=== PATIENT | female | born 1980 | race Caucasian/White ===

== ENCOUNTER 2016-12-24 20:20 | Emergency (ER) | payer SELFPAY ==
[~2016-12-24] VITALS: Ht 165.1 cm; Wt 60.9 kg
[~2016-12-24 20:20] MED LIST: ASCO10003 PO
[2016-12-24 20:23] VITALS: TEMP 36.9; Ht 165.1 cm; Wt 60.9 kg
[2016-12-24] MEDS ORDERED: NUTRTAB40 PO (20:54)
--- NOTE | 2016-12-24 21:31 | EMERGENCY ROOM VISIT NOTE ---
History Report prepared by Natty: Rola Rogers Under the Supervision of: Dr. Jaqueline Hernández D.O. First contact with patient: 21:06 Chief Complaint: RECTAL BLEEDING Stated Complaint: NAUSEA, BLURRED VISION, RECTAL BLEEDING Nursing Triage Summary: Patient reports lump in throat when swallowing, migraine when going to bathroom , bleeding when going to bathroom. Patient reports no difficulty swallowing or breathing and a history of hemerrhoids History of Present Illness The patient is a 36 year old female who presents to the Emergency Room with complaints of waxing and waning headaches beginning 3 weeks ago. The patient states that she only gets these headaches when she is urinating or defecating. She reports that she would get dizzy at work, and states that she has been having visional changes in which she can only see several feet in front of her. The patient states that she has had abdominal pain and that she feels as if there is a lump in her throat when she swallows. The patient reports having numb spots on the right side of her face. The patient also reports that her abdomen has been swollen lately and that she has had rectal bleeding. She states that she had rectal bleeding for 5 years on and off and that she has had an anal fissure. She states that she has had 2 colonoscopies done and was told she has polyps. The patient denies a history of migraines, but reports breaking her nose 5 years ago. She also reports having thyroid problems and a history of a hysterectomy. Source of History: patient Onset: 3 weeks ago Position: head Quality: other (headache) Timing: waxes/wanes Associated Symptoms: + abdominal pain (swollen), + weakness (dizziness) Note: additional symptoms: rectal bleeding, numb spots on the right side of face Review of Systems See HPI for pertinent positives & negatives. A total of 10 systems reviewed and were otherwise negative. Past Medical & Surgical Medical Problems: (1) Anxiety (2) Endometriosis (3) Hypothyroidism (4) Stomach ulcer Surgical Problems: (1) H/O: hysterectomy Family History Cancer Diabetes mellitus Kidney stones Social History Smoking Status: Current Every Day Smoker Marital Status: single Housing Status: lives with family Occupation Status: unemployed Current/Historical Medications Scheduled Nutritional Supplements (Estroven), 1 TAB PO DAILY Allergies Coded Allergies: No Known Allergies (Unverified , 12/24/16) Physical Exam Vital Signs Date Time Temp Pulse Resp B/P (MAP) Pulse Ox O2 Delivery O2 Flow Rate FiO2 12/25/16 00:53 70 16 124/75 98 12/24/16 23:14 80 16 124/71 97 Room Air 12/24/16 21:49 76 16 132/71 97 Room Air 12/24/16 20:23 36.9 91 18 137/79 96 Room Air Physical Exam GENERAL: alert, well appearing, well nourished, no distress, non-toxic EYE EXAM: normal conjunctiva, PERRL and EOM's grossly intact OROPHARYNX: no exudate, no erythema, lips, buccal mucosa, and tongue normal and mucous membranes are moist NECK: supple, no nuchal rigidity, no adenopathy, non-tender LUNGS: Clear to auscultation. Normal chest wall mechanics HEART: no murmurs, S1 normal and S2 normal ABDOMEN: abdomen soft, non-tender, normo-active bowel sounds, no masses, no rebound or guarding. BACK: Back is symmetrical on inspection and there is no deformity, no midline tenderness, no CVA tenderness. SKIN: no rashes and no bruising UPPER EXTREMITIES: upper extremities are grossly normal. LOWER EXTREMITIES: No pitting edema. NEURO EXAM: Normal sensorium, cranial nerves II-XII grossly intact, normal speech, no gross weakness of arms, no gross weakness of legs. No drift. Finger to nose intact. Gross sensation intact. Medical Decision & Procedures ER Provider Diagnostic Interpretation: Radiology results have been interpreted by the radiologist and reviewed by me. KUB HISTORY: Abdominal distention. COMPARISON: Abdomen and pelvis CT 01/26/2014. FINDINGS: The bowel gas pattern is unremarkable. There are no dilated loops of small bowel to suggest an obstruction. No renal calculi. No ureteral calculi. Calcifications in the deep pelvis likely represent phleboliths. These remain unchanged. Moderate amount well-formed stool seen within the colon. No pneumoperitoneum or pneumatosis. IMPRESSION: No evidence for bowel obstruction. Moderate amount of well-formed stool seen within the colon. Electronically signed by: Cornelio Ellington M.D. 12/24/2016 10:45 PM Dictated Date/Time: 12/24/2016 10:35 PM Radiology results have been interpreted by [facility]. MRI HEAD: Compared to CT of 01/26/14. No diffusion abnormality to indicate acute or subacute infarct. No intracranial hemorrhage or mass. Laboratory Results 12/24/16 21:00 Red Blood Count 5.15, Mean Corpuscular Volume 84.3, Mean Corpuscular Hemoglobin 29.7, Mean Corpuscular Hemoglobin Concent 35.3, Mean Platelet Volume 10.1, Neutrophils (%) (Auto) 38.9, Lymphocytes (%) (Auto) 52.6, Monocytes (%) (Auto) 6.6, Eosinophils (%) (Auto) 1.5, Basophils (%) (Auto) 0.2, Neutrophils # (Auto) 3.86, Lymphocytes # (Auto) 5.22, Monocytes # (Auto) 0.65, Eosinophils # (Auto) 0.15, Basophils # (Auto) 0.02 12/24/16 21:00 Test 12/24/16 21:00 12/24/16 22:20 White Blood Count 9.92 K/uL (4.8-10.8) Red Blood Count 5.15 M/uL (4.2-5.4) Hemoglobin 15.3 g/dL (12.0-16.0) Hematocrit 43.4 % (37-47) Mean Corpuscular Volume 84.3 fL (80-100) Mean Corpuscular Hemoglobin 29.7 pg (25-34) Mean Corpuscular Hemoglobin Concent 35.3 g/dl (32-36) Platelet Count 274 K/uL (130-400) Mean Platelet Volume 10.1 fL (7.4-10.4) Neutrophils (%) (Auto) 38.9 % Lymphocytes (%) (Auto) 52.6 % Monocytes (%) (Auto) 6.6 % Eosinophils (%) (Auto) 1.5 % Basophils (%) (Auto) 0.2 % Neutrophils # (Auto) 3.86 K/uL (1.4-6.5) Lymphocytes # (Auto) 5.22 K/uL (1.2-3.4) Monocytes # (Auto) 0.65 K/uL (0.11-0.59) Eosinophils # (Auto) 0.15 K/uL (0-0.5) Basophils # (Auto) 0.02 K/uL (0-0.2) RDW Standard Deviation 37.6 fL (36.4-46.3) RDW Coefficient of Variation 12.3 % (11.5-14.5) Immature Granulocyte % (Auto) 0.2 % Immature Granulocyte # (Auto) 0.02 K/uL (0.00-0.02) Anion Gap 7.0 mmol/L (3-11) Est Creatinine Clear Calc Drug Dose 110.4 ml/min Estimated GFR () 134.0 Estimated GFR (Non- 115.6 BUN/Creatinine Ratio 19.8 (10-20) Calcium Level 9.3 mg/dl (8.5-10.1) Magnesium Level 2.1 mg/dl (1.8-2.4) Total Bilirubin 0.3 mg/dl (0.2-1) Aspartate Amino Transf (AST/SGOT) 11 U/L (15-37) Alanine Aminotransferase (ALT/SGPT) 13 U/L (12-78) Alkaline Phosphatase 66 U/L (45-117) Troponin I < 0.015 ng/ml (0-0.045) Total Protein 7.5 gm/dl (6.4-8.2) Albumin 4.1 gm/dl (3.4-5.0) Globulin 3.4 gm/dl (2.5-4.0) Albumin/Globulin Ratio 1.2 (0.9-2) Thyroid Stimulating Hormone (TSH) 4.920 uIu/ml (0.300-4.500) Urine Color DK YELLOW Urine Appearance CLEAR (CLEAR) Urine pH 7.0 (4.5-7.5) Urine Specific [place] 1.028 (1.000-1.030) Urine Protein NEG (NEG) Urine Glucose (UA) NEG (NEG) Urine Ketones TRACE (NEG) Urine Occult Blood NEG (NEG) Urine Nitrite NEG (NEG) Urine Bilirubin NEG (NEG) Urine Urobilinogen NEG (NEG) Urine Leukocyte Esterase NEG (NEG) Laboratory results per my review. Medications Administered Medications (Trade) Dose Ordered Sig/Nery Route Start Time Stop Time Status Last Admin Dose Admin Sodium Chloride 1,000 ml @ 999 mls/hr Q1H1M STAT IV 12/24/16 21:36 12/24/16 22:36 DC 12/24/16 21:36 999 MLS/HR ECG Indication: weakness Rate (beats per minute): 66 Rhythm: sinus rhythm Findings: T-wave inversion (in V2, flat in aVL and V3), no acute ischemic change, other (normal axis, normal intervals) ED Course 2114: The patient was evaluated in room C2B. A complete history and physical exam was performed. 2135: Ordered Sodium Chloride 1,000 ml @ 999 mls/hr IV. 2314: Ordered Gadavist 6 mmol IV. 5: I updated the patient on her results. 0000: I updated the patient. She has had no change in her condition. We are waiting on her MRI. 0: I updated the patient on her MRI results. 0040: Upon reevaluation, the patient is feeling better. I discussed the findings and the treatment plan with the patient. She verbalizes agreement and understanding. She was discharged home. Medical Decision Differential diagnosis: Etiologies such as benign positional vertigo, dehydration, hypovolemia, anemia, tumor, infection, hypoglycemia, electrolyte abnormalities, cardiac sources, intracerebral event, toxicologic, neurologic, as well as others were entertained. HEART score 1 PERC negative Pt with multiple complaints here. Normal nonfocal neuro exam at bedside. No dysrhythmia on tele. Pt well appearing here. Labs otw reassuring. Discussed close f/u with PCP and possible need for additional speciality evaluation if sx persist. Discussed sx to watch/return for, she verbalized understanding. Doubt acs, pe, tamponade, effusion, dissection, aaa, bacteremia/sepsis, perf, gi bleed. Doubt other acute GI/ pathology. Medication Reconcilliation Current Medication List: was personally reviewed by me Blood Pressure Screening Patient's blood pressure: Normal blood pressure Impression Primary Impression: Head ache Additional Impressions: Abdominal pain Dizziness Chest pain Scribe Attestation The scribe's documentation has been prepared under my direction and personally reviewed by me in its entirety. I confirm that the note above accurately reflects all work, treatment, procedures, and medical decision making performed by me. Departure Information Dispostion Home / Self-Care Referrals No Doctor, Assigned (PCP) Forms HOME CARE DOCUMENTATION FORM, IMPORTANT VISIT INFORMATION, WORK / SCHOOL INSTRUCTIONS Patient Instructions My [facility] Additional Instructions Please call and follow-up with your family doctor about all the symptoms you have been intermittently having. 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 If you have any worsening symptoms or other new concerns, please return to the emergency room. Problem Qualifiers Primary Impression: Head ache Headache type: unspecified Headache chronicity pattern: episodic headache Intractability: not intractable Qualified Codes: R51 - Headache Additional Impressions: Abdominal pain Abdominal location: generalized Qualified Codes: R10.84 - Generalized abdominal pain Chest pain Chest pain type: unspecified Qualified Codes: R07.9 - Chest pain, unspecified
[2016-12-24] MEDS ORDERED: SODIUM CHLORIDE 0.9% 1000ML 1,000 ML IV STA (21:36)
[2016-12-24 22:39] LABS: URINE APPEARANCE CLEAR (CLEAR); URINE BILIRUBIN NEG (NEG); URINE COLOR DK YELLOW; URINE NITRITE NEG (NEG); URINE SPECIFIC GRAVITY 1.028 (1.000-1.030); UROBILINOGEN NEG (NEG); ZZUR CULT IF INDIC CLEAN CATCH NO
--- NOTE | 2016-12-24 22:46 | DIAGNOSTIC IMAGING REPORT ---
KUB HISTORY: Abdominal distention. COMPARISON: Abdomen and pelvis CT 01/26/2014. FINDINGS: The bowel gas pattern is unremarkable. There are no dilated loops of small bowel to suggest an obstruction. No renal calculi. No ureteral calculi. Calcifications in the deep pelvis likely represent phleboliths. These remain unchanged. Moderate amount well-formed stool seen within the colon. No pneumoperitoneum or pneumatosis. IMPRESSION: No evidence for bowel obstruction. Moderate amount of well-formed stool seen within the colon. Electronically signed by: Cornelio Ellington M.D. 12/24/2016 10:45 PM Dictated Date/Time: 12/24/2016 10:35 PM
[2016-12-24 22:49] LABS: MANUAL MICROSCOPIC REQUIRED? NO; REVIEW REQ? NO
[2016-12-24 22:56] LABS: HEMATOCRIT 43.4 % (37-47); MEAN CELL VOLUME 84.3 fL (80-100); MEAN CORPUSCULAR HEMOGLOBIN 29.7 pg (25-34); MEAN CORPUSCULAR HGB CONC 35.3 g/dl (32-36); MEAN PLATELET VOLUME 10.1 fL (7.4-10.4); PLATELET COUNT 274 K/uL (130-400); RED BLOOD COUNT 5.15 M/uL (4.2-5.4); WHITE BLOOD COUNT 9.92 K/uL (4.8-10.8)
[2016-12-24 23:04] LABS: ALT/SGPT 13 U/L (12-78); BLOOD UREA NITROGEN 13 mg/dl (7-18); BUN/CREATININE RATIO 19.8 (10-20); CALCIUM 9.3 mg/dl (8.5-10.1); CARBON DIOXIDE 27 mmol/L (21-32); CHLORIDE 107 mmol/L (98-107); CREATININE 0.64 mg/dl (0.60-1.20); GLUCOSE 108 mg/dl (70-99); MAGNESIUM 2.1 mg/dl (1.8-2.4); POTASSIUM 3.4 mmol/L (3.5-5.1); SODIUM 141 mmol/L (136-145)
[2016-12-24 23:15] LABS: ALB/GLOB RATIO 1.2 (0.9-2); ALKALINE PHOSPHATASE 66 U/L (45-117); AST/SGOT 11 U/L (15-37); BASO % 0.2 %; BASO ABS # 0.02 K/uL (0-0.2); COMPLETE YES; EOS % 1.5 %; IG% 0.2 %; LYMPH % 52.6 %; LYMPH ABS # 5.22 K/uL (1.2-3.4); MONO % 6.6 %; NEUT % 38.9 %
[2016-12-24] MEDS ORDERED: GADAVIST IV PRN (23:15)
[2016-12-25 00:53] VITALS: BP 124/75; PULSE 70; O2SAT 98
--- NOTE | 2016-12-25 06:40 | DIAGNOSTIC IMAGING REPORT ---
MRI OF THE BRAIN WITHOUT AND WITH IV CONTRAST CLINICAL HISTORY: Blurred vision, dizziness, facial numbness and headache. COMPARISON STUDY: Head CT January 26, 2014. TECHNIQUE: Utilizing a 1.5 Emily magnet and dedicated coil, multiplanar, multiecho imaging of the brain was performed pre and postcontrast administration. IV administration of 6 mL of Gadavist contrast was uneventful. FINDINGS: There are no areas of restricted diffusion. No acute intracranial hemorrhage, midline shift or mass effect is present. Ventricular system is normal. Basilar cisterns are patent. There are no extra-axial collections. Flow-voids for the major intracranial vessels are present. There is no intracranial mass or pathologic enhancement. Flow-voids in the major intracranial vessels are present. Calvarial signal is normal. Orbits are unremarkable. Sinuses are clear. There is prominence of the adenoids. IMPRESSION: Unremarkable MRI of the brain. Electronically signed by: Tristin Vidales M.D. 12/25/2016 6:38 AM Dictated Date/Time: 12/25/2016 6:33 AM
== END 2016-12-25 00:54 | disposition home or self-care (01) ==
LOC: C.EDB 20:21 → C.EDC 12-25 00:54
DX: R51 Headache (principal); R10.84 Generalized abdominal pain; R42 Dizziness and giddiness; R07.9 Chest pain, unspecified; Z90.710 Acquired absence of both cervix and uterus; F41.9 Anxiety disorder, unspecified; E03.9 Hypothyroidism, unspecified; Z80.9 Family history of malignant neoplasm, unspecified; Z83.3 Family history of diabetes mellitus; Z84.1 Family history of disorders of kidney and ureter; F17.210 Nicotine dependence, cigarettes, uncomplicated; Z79.899 Other long term (current) drug therapy

== ENCOUNTER 2016-12-27 10:49 | Emergency (ER) | payer SELFPAY ==
[~2016-12-27] VITALS: Ht 165.1 cm; Wt 62.5 kg
[~2016-12-27 10:49] MED LIST changes: -ASCO10003 PO; +NUTRTAB40 PO
[2016-12-27 11:02] VITALS: TEMP 36.9; Ht 165.1 cm; Wt 62.5 kg
--- NOTE | 2016-12-27 11:59 | EMERGENCY ROOM VISIT NOTE ---
History First contact with patient: 11:36 Chief Complaint: SORETHROAT Stated Complaint: LUMPS IN MOUTH,THROAT History of Present Illness The patient is a 36 year old female who presents to the Emergency Room with complaints of "lumps in the back of her throat." These lumps have been present for several weeks. They're on the right side of her throat. She said that she was able to visualize them this morning. The patient was here 3 days ago with complaints of headaches. A full workup was performed including blood work. No abnormalities were found. The patient denies any fever or chills. She denies any cough. She denies any difficulty swallowing. She has been able to eat eat without difficulty. She is up-to-date on her vaccines. Review of Systems 10 system review performed and negative unless noted in HPI or below Past Medical/Surgical History Medical Problems: (1) Anxiety (2) Endometriosis (3) Hypothyroidism (4) Stomach ulcer Surgical Problems: (1) H/O: hysterectomy Family History Cancer Diabetes mellitus Kidney stones Social History Smoking Status: Current Every Day Smoker Marital Status: single Housing Status: lives with family Occupation Status: unemployed Current/Historical Medications Scheduled Nutritional Supplements (Estroven), 1 TAB PO DAILY Physical Exam Vital Signs Date Time Temp Pulse Resp B/P (MAP) Pulse Ox O2 Delivery O2 Flow Rate FiO2 12/27/16 13:41 88 18 120/89 98 Room Air 12/27/16 11:02 99 Room Air 12/27/16 11:02 36.9 97 20 134/72 98 Room Air Physical Exam VITALS: Vitals are noted on the nurse's note and reviewed by myself. Vital signs stable. GENERAL: 36-year-old female, in no acute distress, nondiaphoretic, well- developed well-nourished. SKIN: The skin was without rashes, erythema, edema, or bruising. HEAD: Normocephalic atraumatic. MOUTH: Mucous membranes moist. Tonsils absent. No masses in the oropharynx. Pharynx without erythema or exudate. Uvula midline. Airway patent. Tongue does not deviate. NECK: Supple without nuchal rigidity. No masses on the thyroid noted. No lymphadenopathy. Cervical spine is nontender. No JVD. MUSCULOSKELETAL: Strength 5/5 throughout. NEURO: Patient was alert and oriented to person place and time. Normal sensation to touch. No focal neurological deficits. Medical Decision & Procedures ER Provider Diagnostic Interpretation: CT soft tissue neck with contrast IMPRESSION: 1. Multinodular thyroid. Otherwise normal CT of the neck. ED Course The patient was seen and examined Imaging was performed and reviewed The findings were discussed with the patient. She voiced understanding, and was discharged in good condition Medical Decision Differential diagnosis: Tonsillitis, peritonsillar abscess, vocal nodules, whooping cough, mass This patient is a 36-year-old female that presents to the emergency department with complaints of "lumps in her throat." Her exam was benign. No abnormalities in the oropharynx were noted. The patient was here 3 days ago. She had blood work. No abnormalities were noted. I did not find repeating blood work necessary. I did do a CT of the neck. No abnormalities besides thyroid nodules were noted. She does have a history of thyroid disease. The patient was advised to follow-up with her primary care physician in addition to possibly near nose and throat doctor if her symptoms persist. This chart was completed in part utilizing [employer] Speech Voice Recognition software. Attempts were made to minimize the grammatical errors, random word insertions, pronoun errors and incomplete sentences. Any formal questions or concerns about the content, text or information contained within the body of this dictation should be directly addressed to the provider for clarification. Medication Reconcilliation Current Medication List: was personally reviewed by me Impression Primary Impression: Throat pain Departure Information Dispostion Home / Self-Care Condition GOOD Referrals No Doctor, Assigned (PCP) Andrea Gonzalez D.O. Kao, Yi How, M.D. Patient Instructions My [facility] Additional Instructions You were evaluated in the emergency department for lumps in your throat. A CAT scan showed a few nodules on your thyroid. Otherwise, it was normal. If this continues to bother you, you may want to contact an ear nose and throat doctor for further testing. A number has been provided. If possible, please also follow up with her primary care physician. Return to the emergency department if you have any of the following symptoms: -Fever of 103F or greater -Persistent vomiting - Persistent diarrhea -Lethargy -Chest pain -Shortness of breath -Inability to swallow
[2016-12-27] MEDS ORDERED: OPTIRAY 320 IV PRN (12:15)
--- NOTE | 2016-12-27 13:01 | DIAGNOSTIC IMAGING REPORT ---
SOFT TISSUE NECK WITH CLINICAL HISTORY: 36 years-old Female presenting with feels "lumps in the right side of her throat". TECHNIQUE: Multidetector CT of the neck was performed after the administration of intravenous contrast. IV contrast: 90 mL of Optiray 320. A dose lowering technique was used consistent with the principles of ALARA (as low as reasonably achievable). COMPARISON: None. CT DOSE (mGy.cm): The estimated cumulative dose is 228.62 mGy.cm. FINDINGS: Media Production Operator topogram: Unremarkable. Few small nodules in the thyroid and both lobes. The thyroid does not exert significant mass effect on the trachea or esophagus and is not significantly enlarged. No lymphadenopathy. No suspicious nodular enhancement. Airway patent. Cervical esophagus normal. Vessels patent. Lung apices clear. Cervical spine normal. IMPRESSION: 1. Multinodular thyroid. Otherwise normal CT of the neck. Electronically signed by: Micah Vincent M.D. 12/27/2016 1:00 PM Dictated Date/Time: 12/27/2016 12:56 PM
[2016-12-27 13:41] VITALS: BP 120/89; PULSE 88; O2SAT 98
== END 2016-12-27 13:48 | disposition home or self-care (01) ==
LOC: C.EDB 10:50 → C.EDD 13:48
DX: R07.0 Pain in throat (principal); F41.9 Anxiety disorder, unspecified; E03.9 Hypothyroidism, unspecified; Z87.19 Personal history of other diseases of the digestive system; Z90.710 Acquired absence of both cervix and uterus; Z80.9 Family history of malignant neoplasm, unspecified; Z83.3 Family history of diabetes mellitus; Z84.1 Family history of disorders of kidney and ureter